=== PATIENT | female | born 1975 | race Caucasian/White ===

== ENCOUNTER 2020-12-06 11:07 | Outpatient (CLI) | payer BC | END 2020-12-06 11:08 | disposition home or self-care (01) | LOC: CSHMAMMO 11:07 | PROVIDERS: ATTEND Family Medicine | DX: Z12.31 Encounter for screening mammogram for malignant neoplasm of breast (principal) | CPT/HCPCS: 77063; 77067 ==

== ENCOUNTER 2022-09-25 10:52 | Outpatient (CLI) | payer BC | END 2022-09-25 10:53 | disposition home or self-care (01) | LOC: CSHMAMMO 10:52 | PROVIDERS: ATTEND Family Medicine | DX: Z12.31 Encounter for screening mammogram for malignant neoplasm of breast (principal) | CPT/HCPCS: 77063; 77067 ==